=== PATIENT | female | born 1960 | race Hispanic/Latino ===

== ENCOUNTER 2017-03-29 08:23 | Emergency (ER) | payer BC ==
[~2017-03-29] VITALS: Ht 162.6 cm; Wt 88.5 kg
--- OUTSIDE RECORDS SUMMARY | ~2017-03-29 | XMS ---
Demographics + + + | Address | [address] | | | [place] [address] | + + + | Preferred Language | Unknown | + + + | Marital Status | Unknown | + + + | Mu-Ism Affiliation | Unknown | + + + | Race | Unknown | + + + | Ethnic Group | Unknown | + + + Author + + + | Author | [facility] | + + + | Organization | [facility] | + + + | Address | [address] | | | [place] [address] | + + + | Phone | | + + + Care Team Providers + + + + | Care Aspnet Developer Name | Role | Phone | + + + + Unavailable | Unavailable | + + + + PROBLEMS +---------+ + + +--------+ + + | Type | Condition | ICD9-CM | [id number] | Onset | Condition | SNOMED | | | | Code | Code | Dates | Status | Code | +---------+ + + +--------+ + + | Problem | Hypertensi | | I10 | | Active | [id number] | | | on | | | | | | +---------+ + + +--------+ + + | Problem | BOM | H66.93 | | | Active | [id number] | | | (bilateral | | | | | | | | otitis | | | | | | | | media) | | | | | | +---------+ + + +--------+ + + | Problem | Pharyngiti | J02.9 | | | Active | [id number] | | | s, | | | | | | | | unspecifie | | | | | | | | d etiology | | | | | | +---------+ + + +--------+ + + ALLERGIES + + + + +--------+ | Substance | Reaction | Event Type | Date | Status | + + + + +--------+ | Cephalexin | Unknown | Drug Allergy | Sep, | Active | + + + + +--------+ | Septra | Unknown | Drug Allergy | Sep, | Active | + + + + +--------+ | Sulfa | Unknown | Drug Allergy | Sep, | Active | + + + + +--------+ | latex | Unknown | Non Drug | Sep, | Active | | | | Allergy | | | + + + + +--------+ SOCIAL HISTORY No smoking Hx information available PLAN OF CARE + +---------+ | Activity | Details | + +---------+ +---+ | | +---+ + + + | Follow Up | prn Reason:null | + + + VITAL SIGNS + + + + | Height | 64 in | 2016-10-08 | + + + + | Weight | 203 lbs | 2016-10-08 | + + + + | BMI | 34.84 kg/m2 | 2016-10-08 | + + + + | Temperature | 98.3 degrees Fahrenheit | 2016-10-08 | + + + + | Heart Rate | 123 /min | 2016-10-08 | + + + + | Blood pressure systolic | 140 mm Hg | 2016-10-08 | + + + + | Blood pressure diastolic | 105 mm Hg | 2016-10-08 | + + + + MEDICATIONS + + + + + + + +--------+ | Medicati | Instruct | Dosage | Frequenc | Start | End Date | Duration | Status | | on | ions | | y | Date | | | | + + + + + + + +--------+ | Doxycycl | Oral bid | 1 tablet | 12h | Sep, | 7 Sep, | 10 days | Active | | ine | | | | 2016 | 2016 | | | | Hyclate | | | | | | | | | 100 MG | | | | | | | | + + + + + + + +--------+ | Losartan | | | | | | | Active | | | | | | | | | | | Potassiu | | | | | | | | | m | | | | | | | | + + + + + + + +--------+ | Sertalin | | | | | | | Active | | e | | | | | | | | + + + + + + + +--------+ RESULTS No Results PROCEDURES + + + + + | Procedure | Date Ordered | Related Diagnosis | Body Site | + + + + + | Est Level III | Oct 08, 2016 | | | | Intermediate | | | | + + + + + | DSCH[facility] MED/CURRENT | Oct 08, 2016 | | | | MED MERGE | | | | + + + + + | DOC MEDS VERIFIED | Oct 08, 2016 | | | | W/PT OR RE | | | | + + + + + IMMUNIZATIONS No Known Immunizations"
--- OUTSIDE RECORDS SUMMARY | ~2017-03-29 | XMS ---
Demographics + + + | Address | [address] | | | [place] [address] | + + + | Preferred Language | Unknown | + + + | Marital Status | Unknown | + + + | Shinto Affiliation | Unknown | + + + | Race | Unknown | + + + | Ethnic Group | Unknown | + + + Author + + + | Author | [facility] | + + + | Organization | [facility] | + + + | Address | [address] | | | [place] [address] | + + + | Phone | | + + + Care Team Providers + + + + | Care Senior Receptionist Name | Role | Phone | + + + + Unavailable | Unavailable | + + + + PROBLEMS + + + + + + + + | Type | Condition | ICD9-CM | [id number] | Onset | Condition | SNOMED | | | | Code | Code | Dates | Status | Code | + + + + + + + + | Problem | BOM | H66.93 | | | Active | [id number] | | | (bilateral | | | | | | | | otitis | | | | | | | | media) | | | | | | + + + + + + + + | Problem | Pharyngiti | J02.9 | | | Active | [id number] | | | s, | | | | | | | | unspecifie | | | | | | | | d etiology | | | | | | + + + + + + + + | Assessment | Nostril | J34.89 | | 08 June, | Active | | | | infection | | | 2017 | | | + + + + + + + + ALLERGIES + + + + +--------+ | Substance | Reaction | Event Type | Date | Status | + + + + +--------+ | Cephalexin | Unknown | Drug Allergy | June, | Active | + + + + +--------+ | Septra | Unknown | Drug Allergy | June, | Active | + + + + +--------+ | Sulfa | Unknown | Drug Allergy | June, | Active | + + + + +--------+ | latex | Unknown | Non Drug | June, | Active | | | | Allergy | | | + + + + +--------+ SOCIAL HISTORY No smoking Hx information available PLAN OF CARE VITAL SIGNS + + + + | Height | 64 in | 2016-06-18 | + + + + | Weight | 209.9 lbs | 2016-06-18 | + + + + | BMI | 36.03 kg/m2 | 2016-06-18 | + + + + | Temperature | 97.6 degrees Fahrenheit | 2016-06-18 | + + + + | Heart Rate | 116 /min | 2016-06-18 | + + + + | Blood pressure systolic | 149 mm Hg | 2016-06-18 | + + + + | Blood pressure diastolic | 95 mm Hg | 2016-06-18 | + + + + MEDICATIONS + + + + + + + +--------+ | Medicati | Instruct | Dosage | Frequenc | Start | End Date | Duration | Status | | on | ions | | y | Date | | | | + + + + + + + +--------+ | Mupiroci | Nasally | as | 8h | 08 June, | 13 May, | 5 days | Active | | n | Three | directed | | 2017 | 2017 | | | | Calcium | times a | | | | | | | | 2 % | day | | | | | | | [...] + + | Est Level III | June 18, 2016 | | | | Intermediate | | | | + + + + + IMMUNIZATIONS No Known Immunizations"
[~2017-03-29 08:23] MED LIST: LISINOPRIL5 MG PO; NECON1 EAC1 PO; OMEPRAZOLE20 MG PO; PERCOCET 5-3251 EACH PO; ZOLOFT25 MG PO
[2017-03-29] MEDS ORDERED: COZAAR25 MG PO (08:39)
[2017-03-29] MEDS ORDERED: DOXYCYCLINE HY100 MG PO (08:59)
[2017-03-29] MEDS ORDERED: CLEOCIN HCL300 MG PO (08:59)
== END 2017-03-29 09:30 | disposition home or self-care (01) ==
LOC: ED 08:23
DX: S61.051A Open bite of right thumb without damage to nail, initial encounter (principal); S61.452A Open bite of left hand, initial encounter; I10 Essential (primary) hypertension; Z88.1 Allergy status to other antibiotic agents; Z91.040 Latex allergy status; Z88.5 Allergy status to narcotic agent; Z79.899 Other long term (current) drug therapy; W54.0XXA Bitten by dog, initial encounter
CPT/HCPCS: 99283